=== PATIENT | male | born 1960 | race Caucasian/White ===

== ENCOUNTER 2017-04-13 06:49 | Outpatient (CLI) | payer OTHER ==
[~2017-04-13] VITALS: Ht 188 cm; Wt 108.2 kg
--- NOTE | ~2017-04-13 | HEMODYNAMI ---
PATIENT:ADOLFO MADRID MEDICAL RECORD: [id number] : 62 LOCATION:[facility] ADMISSION DATE: 04/13/17 Generatedon:04/13/20179:20 Patient name: ADOLFO MADRID Patient #: [id number] SSN: : Date of study: 04/13/2017 Page: Of Hemodynamic Procedure Report Patient Data Patient Demographics Procedure consent was obtained First Name: ADOLFO Gender: Male Last Name: JULIUS : 1960 [facility] Initial: KINA Age: 56 year(s) Patient #: [id number] Race: Unknown Additional ID: [id number] Contact details [address]: [address] [place], [place] [address] State: [place] City: [place] Zip code: [address] Past Medical History Allergies: No known allergies Admission Admission Data Admission Date: 04/13/2017 Admission Time: 6:49 Procedure Procedure Types Cath Procedure Diagnostic Procedure LHC LHC w/Coronaries Miscellaneous Procedures Moderate Sedation up to 15 minutes Procedure Description Procedure Date Procedure Date: 04/13/2017 Procedure Start Time: 9:01 Procedure End Time: 9:16 Procedure Staff Name Function Lonnie White MD Performing Physician Amina Morton RN Nurse Faye Omer RT Monitor Tejas Bradford RT Scrub Procedure Data Cath Procedure Fluoroscopy Diagnostic fluoroscopy Total fluoroscopy Time: 3.9 time: 3.9 min min Diagnostic fluoroscopy Total fluoroscopy dose: 845 dose: 845 mGy mGy Contrast Material Contrast Material Type Amount (ml) Isovue 300 79 Entry Location Entry Primary Successful Side Size Upsize Upsize Entry Closure [place] ccessful Closure Location (Fr) 1 (Fr) 2 (Fr) Remarks Device Remarks Radial Right 6 Fr Mechanical TR Band artery Short Compression Estimated blood loss: 10 ml Diagnostic catheters Device Type Used For End Catheter Placement Terumo 5Fr [place] 110cm Procedure catheter Diagnostic Infinity 5Fr Procedure AR MOD Catheter Diagnostic Terumo 5Fr Procedure [place] 110cm catheter Procedure Complications No complications Procedure Medications Medication Administration Route Dosage Oxygen NC 2 l/min Lidocaine 2% added to field 20 Heparin Flush Bag added to field 2 bags (1000units/500ml NS) 0.9% NaCl I.V. 100 ml/hr Versed I.V. 1 mg Fentanyl I.V. 50 mcg Radial Cocktail I.A. 1 syringe (Verapomil 2mg/Nitro 400mcg/Heparin 1500units) Versed I.V. 1 mg Fentanyl I.V. 50 mcg Fentanyl I.V. 25 mcg Hemodynamics Rest Heart Rate: 79 (bpm) Pressure Samples Time Site Value (mmHg) Purpose Heart Use Rate(bpm) 9:03 LV 101/-11,4 Snapshot 89 Gradients Valve Time Site Site Mean SEP/DFP Peak To Heart Use 1 2 (mmHg) (sec/min) Peak Rate (mmHg) (bpm) Aortic 9:04 LV AO 32 Snapshots Pre Cath Intra NCS Post Cath Vital Signs Time Heart Resp SPO2 NIBP Rhythm Pain Sedation Rate (ipm) (%) (mmHg) Status Level (bpm) 8:45:26 79 14 97 130/82(98) NSR 0 (11) 10(A) , No pain 8:49:36 80 16 98 118/81(95) NSR 0 (11) 10(A) , No pain 8:53:46 82 17 97 109/73(87) NSR 0 (11) 10(A) , No pain 8:57:52 81 16 97 117/73(94) NSR 0 (11) 10(A) , No pain 9:01:58 80 15 98 118/70(84) NSR 0 (11) 9(A) , No pain 9:06:02 88 15 95 106/65(80) NSR 0 (11) 9(A) , No pain 9:10:09 84 16 96 102/65(84) NSR 0 (11) 9(A) , No pain 9:14:15 82 16 96 99/64(77) NSR 0 (11) 10(A) , No pain 9:17:42 81 16 96 109/68(83) NSR 0 (11) 10(A) , No pain Medications Time Medication Route Dose Verified Delivered Reason Notes E ffectiveness by by 8:39:01 Oxygen NC 2 l/min Lonnie Buffie used for Christopher Morton pantograph transferrer 8:39:10 Lidocaine 2% added 20ml Lonnie Lonnie for local to vial Christopher White MD anesthetic field 8:39:16 Heparin Flush added 2 bags Lonnie Lonnie used for Bag to Christopher White MD procedure (1000units/500ml field NS) 8:39:29 0.9% NaCl I.V. 100 Lonnie Buffie Per ml/hr Christopher Morton RN physician 8:58:18 Versed I.V. 1 mg Lonnie Buffie for sedation Christopher Morton RN 8:58:23 Fentanyl I.V. 50 mcg Lonnie Buffie for sedation Christopher Morton RN 9:02:32 Radial Cocktail I.A. 1 Lonnie Lonnie for (Verapomil syringe Christopher White MD vasodilation 2mg/Nitro 400mcg/Heparin 1500units) 9:02:39 Versed I.V. 1 mg Lonnie Buffie for sedation Christopher Morton RN 9:02:43 Fentanyl I.V. 50 mcg Lonnie Buffie for sedation Christopher Morton RN 9:08:01 Fentanyl I.V. 25 mcg Lonnie Buffie for sedation Christopher Morton RN Procedure Log Time Note 8:15:12 Tejas Bradford RT(R) sent for patient. Start room use. 8:21:13 Time tracking: Regular hours 8:21:16 Plan of Care:Hemodynamics will remain stable., Cardiac rhythm will remain stable., Comfort level will be maintained., Respiratory function will remain adequate., Patient/ family verbilizes understanding of procedure., Procedure tolerated without complication., Recovers from procedure without complications.. 8:32:36 Patient received from Pre/Post Procedure Room to CCL 1 Alert and oriented. Tansferred to table in Supine position. 8:32:38 Correct patient and procedure confirmed by team. 8:32:38 Warm blankets applied, and sathya hugger turned on for patient comfort. 8:32:42 Signed procedure consent form obtained from patient. 8:32:43 ECG and BP/O2 sat monitors applied to patient. 8:39:01 Oxygen 2 l/min NC was administered by Amina Morton RN; used for procedure; 8:39:10 Lidocaine 2% 20ml vial added to field was administered by Lonnie White MD; for local anesthetic; 8:39:16 Heparin Flush Bag (1000units/500ml NS) 2 bags added to field was administered by Lonnie White MD; used for procedure; 8:39:29 0.9% NaCl 100 ml/hr I.V. was administered by Amina Morton RN; Per physician; 8:44:26 Plan of Care:Hemodynamics will remain stable., Cardiac rhythm will remain stable., Comfort level will be maintained., Respiratory function will remain adequate., Patient/ family verbilizes understanding of procedure., Procedure tolerated without complication., Recovers from procedure without complications.. 8:44:29 Vital chart was started 8:44:30 Baseline sample Acquired. 8:44:32 Full Disclosure recording started 8:44:53 H&P Date Dictated: 04/11/2017 Within 30 days and on chart., H&P Addendum completed by physician on day of procedure. (MUST COMPLETE FOR ALL OUTPATIENTS). 8:44:54 Pre-procedure instructions explained to patient. 8:44:55 Pre-op teaching completed and patient verbalized understanding. 8:45:06 Family in waiting room. 8:45:09 Patient NPO since Midnight. 8:45:57 Patient allergic to No known allergies 8:46:05 Is patient on blood thinner?No 8:46:10 Patient diabetic? No. 8:46:14 Snore? Yes 8:46:17 Sleep apnea? No 8:46:22 Dentures? No ? 8:46:31 IV patent on arrival in left forearm with 0.9% NaCl at [facility]. 8:46:40 Lab results completed and on chart. 8:46:43 Right Radial & Right Groin area was prepped with chlora-prep and draped in sterile fashion 8:46:45 Alarms reviewed by R. N. 8:46:46 Sharps counted by scrub and verified by R.N. 8:46:46 Physician paged 8:46:48 Physician arrived 8:57:34 --------ALL STOP TIME OUT------ 8:57:35 Final Timeout: patient, procedure, and site verified with staff and physician. All members of the team are in agreement. 8:57:46 Right Radial & Right Groin site verified by team. 8:57:51 Sedation plan: IV Moderate Sedation Versed, Fentanyl 8:58:18 Versed 1 mg I.V. was administered by Buffie Morton RN; for sedation; 8:58:23 Fentanyl 50 mcg I.V. was administered by Amina Morton RN; for sedation; 8:59:58 Use device set Radial Dx 8:59:59 Acist Syringe opened to sterile field. 9:00:00 Medline Cath Pack opened to sterile field. 9:00:00 Bag Decanter opened to sterile field. 9:00:00 Terumo 6Fr Slender Glidesheath opened to sterile field. 9:00:01 St Jose 260cm J .035 wire opened to sterile field. 9:00:01 Acist Hand Control opened to sterile field. 9:00:02 Acist Manifold opened to sterile field. 9:00:02 Tegaderm 4 x 4 opened to sterile field. 9:00:03 MBrace Wrist Support opened to sterile field. 9:01:00 Procedure started. 9:01:07 Local anesthetic to right radial artery with Lidocaine 2% by Lonnie White MD.INITIAL ACCESS ONLY 9:01:35 A 6 Fr Short sheath was inserted into the Right Radial artery 9:02:16 A Terumo 5Fr [place] 110cm catheter was advanced over the wire and used for Procedure. 9:02:32 Radial Cocktail (Verapomil 2mg/Nitro 400mcg/Heparin 1500units) 1 syringe I.A. was administered by Lonnie White MD; for vasodilation; 9:02:39 Versed 1 mg I.V. was administered by Amina Morton RN; for sedation; 9:02:43 Fentanyl 50 mcg I.V. was administered by Amina Morton RN; for sedation; 9:02:57 Zero performed for pressure channel P1 9:03:13 Zero performed for pressure channel P1 9:04:02 EF : 60 % 9:06:04 Catheter removed. 9:07:10 A Diagnostic Infinity 5Fr AR MOD Catheter was advanced over the wire and used for Procedure. 9:07:37 RCA angiography performed. 9:08:01 Fentanyl 25 mcg I.V. was administered by Amina Morton RN; for sedation; 9:09:14 Catheter removed. 9:09:49 A Diagnostic Terumo 5Fr [place] 110cm catheter was advanced over the wire and used for Procedure. 9:10:13 LCA angiography performed. 9:12:56 Catheter removed. 9:13:02 Terumo TR Band Standard opened to sterile field. 9:13:50 Sheath removed intact; hemostasis achieved with Mechanical Compression to the Right Radial artery. 9:13:55 Procedure ended.(Physican Out) 9:14:09 Fluoroscopy time 03.90 minutes. 9:14:14 Fluoroscopy dose: 845 mGy 9:14:14 Flurop Dose total: 845 9:14:20 Contrast amount:Isovue 300 79ml. 9:14:21 Sharps counted by scrub and verified by R.N. 9:14:42 TR band inflated with 12cc of air. 9:14:43 Insertion/operative site no bleeding no hematoma. 9:15:02 Post Procedure Pulses reassessed and unchanged 9:15:07 Post-procedure physical assessment completed. ASA score P 2 - A patient with mild systemic disease as per Lonnie White MD. 9:15:11 Post procedure rhythm: unchanged. 9:15:15 Estimated blood loss: 10 ml 9:15:17 Post procedure instruction explained to patient.Patient verbalizes understanding. 9:15:29 Procedure and supply charges have been captured, reviewed, submitted and are correct. 9:15:53 Procedure Complication : No complications 9:15:56 Vital chart was stopped 9:15:57 See physician's report for complete and final results. 9:16:16 Report given to Pre/Post Procedure Room. 9:16:20 Patient transfered to Pre/Post Procedure Room with Stretcher. 9:16:23 Procedure ended. 9:16:23 Full Disclosure recording stopped 9:16:27 End room use (Document Last) 9:16:27 End room use (Document Last) Device Usage Item Name Manufacture Quantity Catalog Hospital Part Current Minimal Lot# / Number Charge Number Stock Stock Serial# Code Acist Acist 1 80192 469697 244234 [id number] 20 Syringe Medical Systems Inc Medline Cardinal 1 [id number] 487242 43826 746516 5 Cath Pack Health Bag Microtek 1 2001S [id number] 56394 200248 5 Decanter Medical Inc. Terumo 6Fr Terumo 1 [id number] 004684 798205 618969 [address] Jose 1 768416 127696 386538 633039 30 260cm J .035 wire Acist Hand Acist 1 94392 839003 454831 947921 5 Control Medical Systems Inc Acist Acist 1 24161 404238 466936 693451 5 Manifold Medical Systems Inc Tegaderm 4 3M 1 1626W 937471 128316 161211 5 x 4 MBrace Advanced 1 140-0250-00 280836 70423 506298 5 Wrist Vascular Support Dynamics Terumo 5Fr Terumo 1 40-2743 763721 302737 910834 5 Ayo 110cm catheter Diagnostic Cardinal 1 [id number] 544728 439523 091098 15 Infinity Health 5Fr AR MOD Catheter Diagnostic Terumo 1 40-2908 557816 141217 675081 5 Terumo 5Fr [place] 110cm catheter Terumo TR Terumo 1 [id number] 628118 860688 654558 40 Band Standard Signature Audit [place] Stage Time Signature Unsigned Intra-Procedure 04/13/2017 Faye Omer 9:20:02 AM RT(R) Signatures Monitor : Faye Omer Signature : RT Date : Time : [place] [id number] CARLOS AMES DO[place], [place] [address]
[2017-04-13] MEDS ORDERED: GLUCOPHAGE1000 MG PO (06:52)
[2017-04-13] MEDS ORDERED: INVOKANA300 MG PO (06:52)
[2017-04-13] MEDS ORDERED: GLIMEPIRIDE4 MG PO (06:52)
[2017-04-13] MEDS ORDERED: BENICAR HCT 40-1 TA1 PO (06:53)
[2017-04-13] MEDS ORDERED: MOBIC7.5 MG PO (06:53)
[2017-04-13] MEDS ORDERED: ZOCOR40 MG PO (06:53)
[2017-04-13] MEDS ORDERED: HUMALOG 30100 UNITS/ SC (06:55)
[2017-04-13] MEDS ORDERED: LANTUS INSULIN10 ML SC (06:55)
[2017-04-13 07:07] VITALS: BP 131/80; Ht 188 cm; Wt 108.2 kg
[2017-04-13 07:22] LABS: BASOPHILS 0.3 % (0-2); HEMATOCRIT 41.5 % (42.0-54.0); IMMATURE GRANULOCYTES 0.5 % (0-5); LYMPHOCYTES 21.3 % (15-50); MCH 31.6 pg (26.0-34.0); MCHC 36.1 g/dL (31.0-37.0); MCV 87.4 fL (80.0-100.0); MEAN PLATELET VOLUME 10.4 fL (7.4-10.4); NEUTROPHILS 64.9 % (40-80); PLATELET COUNT 164 10x3/uL (130-400); RBC 4.75 10x6/uL (4.20-6.10); RDW 12.7 % (11.5-14.5); WBC 6.1 10x3/uL (4.8-10.8)
[2017-04-13 08:00] LABS: CALC OSMOLALITY 281 mosm/kg (275-300); CALCIUM 9.1 mg/dL (8.5-10.1); CARBON DIOXIDE 27.7 mmol/L (21.0-32.0); CHLORIDE - SERUM 99 mmol/L (98-107); CREATININE - SERUM 0.9 mg/dL (0.6-1.3); GLUCOSE 261 mg/dL (74-106); SODIUM 135 mmol/L (136-145); UREA NITROGEN 21 mg/dL (7-18); eGFR NON AFRICAN AMERICAN > 90 mL/min (90-120)
--- NOTE | 2017-04-13 10:13 | NUR ---
1000 PT DENIES ANY C/O. RR EVEN AND UNLABORED. NSR, RATE 72. DENIES ANY C/O CHEST DISCOMFORT OR NAUSEA. TR BAND TO RIGHT WRIST IS CDI, NO BLEEDING OR HEMATOMA NOTED. FINGERS WARM, CAP REFILL IS BRISK, FAMILY AT BEDSIDE.
--- NOTE | 2017-04-13 10:32 | NUR ---
1030 PT DENIES ANY C/O. TR BAND DEFLATION BEGUN, 3 CC OF AIR REMOVED WITH NO BLEEDING OR HEMATOMA NOTED. VSS, WILL CONTINUE TO MONITOR. FERN ICE CHIPS WITH NO NAUSEA.
--- NOTE | 2017-04-13 11:00 | NUR ---
1100 PT DENIES ANY C/O, FERN SANDWICH AND PO FLUIDS WITH NO NAUSEA. TR BAND DEFLATION UNDERWAY WITH NO BLEEDING OR HEMATOMA NOTED. VSS, FAMILY AT BEDSIDE.
--- NOTE | 2017-04-13 12:00 | NUR ---
1130 TR BAND REMOVED AND 2X2, TEGDERM APPLIED AT SITE. NO BLEEDING OR HEMATOMA NOTED. PT DENIES ANY C/O. VSS. 1200 IV DC'D WITH CATH INTACT, REVIEWED DC INSTRUCTIONS AND PT AND VERBALIZE UNDERSTANDING. NO BLEEDING OR HEMATOMA AT CATH ENTRY SITE, DRESSING REMAINS CDI, WRIST IMMOBILIZER IN PLACE. ASSISTED PT TO THE BATHROOM AND PT VOIDED QS.
--- NOTE | 2017-04-13 13:25 | NUR ---
1210 PT ESCORTED TO PRIVATE AUTO VIA WC BY NURSE WITH DRIVING HIM HOME.
== END 2017-04-13 12:10 | disposition home or self-care (01) ==
LOC: D.CATH 06:49
PROVIDERS: Internal Medicine Cardiovascular Disease
DX: I25.10 Atherosclerotic heart disease of native coronary artery without angina pectoris (principal); Z95.5 Presence of coronary angioplasty implant and graft; R94.39 Abnormal result of other cardiovascular function study; I25.2 Old myocardial infarction; E11.9 Type 2 diabetes mellitus without complications; I10 Essential (primary) hypertension; E78.5 Hyperlipidemia, unspecified; Z79.4 Long term (current) use of insulin; Z79.84 Long term (current) use of oral hypoglycemic drugs; Z79.1 Long term (current) use of non-steroidal anti-inflammatories (NSAID); Z79.899 Other long term (current) drug therapy; F17.200 Nicotine dependence, unspecified, uncomplicated; Z01.812 Encounter for preprocedural laboratory examination

== ENCOUNTER → 2017-05-26 12:22 | Outpatient (CLI) | payer MEDICARE ==
[2017-04-13 07:07] VITALS: BMI 30.6
[~2017-05-26 12:22] MED LIST: ASPIRIN81 MG PO; BENICAR HCT 40-1 TA1 PO; GLIMEPIRIDE4 MG PO; GLUCOPHAGE1000 MG PO; HEMOCYTE PLUS C1 CAP PO; HUMALOG 30100 UNITS/ SC; HYDROCODONE-APA1 TAB PO; INVOKANA300 MG PO; JARDIANCE25 MG PO; LANTUS INSULIN10 ML SC; LOPRESSOR25 MG PO; MOBIC7.5 MG PO; ZOCOR40 MG PO
[2017-05-27 08:16] LABS: HEPATITIS C ANTIBODY <0.1 (0.0-0.9)
== END | disposition home or self-care (01) ==
LOC: D.US 12:22 → D.LAB 05-29 13:00 → D.US 05-29 13:30
PROVIDERS: Internal Medicine Cardiovascular Disease
DX: Z01.812 Encounter for preprocedural laboratory examination (principal); I65.23 Occlusion and stenosis of bilateral carotid arteries

== ENCOUNTER 2017-06-12 05:11 | Inpatient (IN) | payer MEDICARE ==
--- NOTE | 2017-06-06 11:37 | HP ---
PATIENT: ADOLFO MADRID MEDICAL RECORD: [id number] ACCOUNT: [id number] LOCATION:[facility] : 62 ADMISSION DATE: 06/12/17 HISTORY AND PHYSICAL EXAMINATION NameADOLFO MADRID (57yo, M) ID# [id number]. Date/Time05/19/2017 02:21TXSPF25 1961ervice Dept.NPP_[facility] ClinicProviderEDROB JACKSON MDInsuranceMed Primary: TERLINGUA [employer] Insurance # : [id number] Policy/Group # : [id number] Referring Provider Name : GERMAIN WEEKS Employer Name : UNKNOWN Prescription: ORX - Member is eligible. Chief Complaint Coronary artery disease evaluate for CABG Patient's Care Team Referring Provider (): [facility]MAIN WEEKS[facility] [address] [place] [phone], , Western Philosophy Professor: MANJU SINHA: [address] [place] [address], , Patient's Pharmacies [facility] ([facility]): [address] [place] [address], , Vitals BP:140/70 sitting R arm 05/19/2017 02:45 pm 134/68 sitting L arm 05/19/2017 02:46 pmBP Cuff Size:adult 05/19/2017 02:45 pm adult 05/19/2017 02:46 pmHR:88,reg 05/19/2017 02:47 pmHt:6 ft 2 in 05/19/2017 02:48 pmWt:248 lbs 05/19/2017 02:48 pmNotes:describes chest pressure that doesn't seem to correllate with activity or rest, just comes and goes at different times. No nausea, no SOB.05/19/2017 02:47 pmBMI:31.8 05/19/2017 02:48 pmAllergies Reviewed Allergies NKDAMedications Reviewed Medications BC Arthritis 1,000 mg-65 mg oral powder packet Take by oral route. Internal Note: states takes about every day05/19/17 enteredSandie WilsonDemerol Internal Note: prn 1-2 times a week for arthritic pain in ozalbn29/18/17 Jose Brownglimepiride 4 mg vsnqty83/05/17 filledPRESCRIPTION SOLUTIONSHumaLOG KwikPen 100 unit/mL diwhagvorgrc12/09/17 filledPRESCRIPTION SOLUTIONSInvokana 300 mg /05/17 filledPRESCRIPTION SOLUTIONSLantus 100 unit/mL subcutaneous dzjazwkt92/07/17 filledPRESCRIPTION SOLUTIONSmeloxicam 15 mg lkxybr64/19/17 filledPRESCRIPTION SOLUTIONSmetFORMIN 1,000 mg wnhbci69/05/17 filledPRESCRIPTION SOLUTIONSolmesartan 40 mg-hydrochlorothiazide 25 mg tablet TK 1 T PO D003/10/17 filledsurescriptssimvastatin 40 mg /05/17 filledPRESCRIPTION SOLUTIONSProblems Reviewed Problems Atherosclerosis of coronary artery without angina pectoris - Onset: 05/19/2017 Coronary atherosclerosis - Onset: 05/15/2017 Family History Discussed Family History Unspecified Relation- Heart diseaseSocial History Discussed Social History HISTORY AND PHYSICAL [id number] ADOLFO MADRID Cardiology Family history of heart disease?: Y Smoking Status: Former smoker High Cholesterol: Y High blood pressure: Y Diabetes: Y Is blood transfusion acceptable in an emergency?: Y Surgical History Reviewed Surgical History Past Medical History Discussed Past Medical History Angioplasty (balloon): Y Coronary Artery Disease: Y Diabetes: Y Heart Disease: Y Heart stents: Y High Blood Pressure: Y Hyperlipidemia: Y Documents for Discussion N/A Screening None recorded. HPI Angina/Chest Pain Reported by patient. Location: chest; substernal Quality: pressure; tightness Severity: not limiting Duration: lasts minutes Onset/Timing: multiple times per day Context: exertional; at rest coronary artery disease with exertional angina ROS Patient reports exercise intolerance but reports no fever, no night sweats, no significant weight gain, and no significant weight loss. He reports chest pain on exertion and arm pain on exertion but reports no shortness of breath when walking, no shortness of breath when lying down, no palpitations, and no known heart murmur. He reports arthralgias/joint pain but reports no muscle aches, no muscle weakness, no back pain, and no swelling in the extremities. He reports no dry eyes, no irritation, and no vision change. He reports no difficulty hearing and no ear pain. He reports no frequent nosebleeds and no nose/sinus problems. He reports no sore throat, no bleeding gums, no snoring, no dry mouth, no mouth ulcers, no oral abnormalities, and no rodger t h problems. He reports no jugular vein distension and no swollen glands. He reports no cough, no wheezing, no shortness of breath, and no coughing up blood. He reports no abdominal pain, no vomiting, normal appetite, no diarrhea, not vomiting blood, no na u sea, and no constipation. He reports no incontinence, no difficulty urinating, no hematuria, and no increased frequency. He reports no abnormal mole, no jaundice, and no rashes. He reports no loss of consciousness, no weakness, no numbness, no seizures, n o dizziness, and no headaches. He reports no depression, no sleep disturbances, feeling safe in relationship, and no alcohol abuse. He reports no fatigue. He reports no swollen glands and no bruising. He reports no runny nose, no sinus pressure, no itching , no hives, and no frequent sneezing. ROS as noted in the HPI HISTORY AND PHYSICAL [id number] ADOLFO MADRID Physical Exam Patient is a 57-year-old male. Constitutional: General Appearance healthy-appearing, well developed, and overweight. Level of Distress NAD. Ambulation ambulating normally. Cardiovascular: Apical Impulse not displaced or no thrill. Heart Auscultation normal s1 and s2; no murmurs, rubs, or gallops; and RRR. Arterial Pulses no abdominal aorta bruits, femoral bruits, or popliteal bruits and 2+ bilateral, carotid 2+ bilateral, fe moral 2+ bilateral, popliteal 2+ bilateral, and dorsalis pedis 2+ bilateral. Edema no edema or varicosities. Lungs: Repiratory Effort no dyspnea. Percussion no hyperresonance or dullness or flatness. Auscultation no wheezing, rhonchi, or rales / crackles and breathing sounds normal, good air movement, and CTA except as noted. Abdomen: Bowl Sounds normal. Inspection and Palpation no tenderness, guarding, masses, or rebound tenderness and soft and non-distended. Liver non-tender and no hepatomegaly. Spleen non-tender and no splenomegaly. Hernia none palpable. Musculoskeletal System: Gait And Stance normal gait and stance. Digits and Nails normal nails and no cyanosis. Neurologic: Cranial Nerves grossly intact. Reflexes DTRs 2+ bilaterally throughout. Sensation grossly intact. Lymph Nodes: Lymph Nodes no cervical LAD, supraclavicular LAD, axillary LAD, or inguinal LAD. Eyes: Lids and Conjunctivae no discharge or pallor and non-injected. Pupils PERRLA. Cornea grossly intact. EOM EOMI. Lens clear. Sclerae non-icteric. Neck: Neck no masses, enlarged lymph nodes, or carotid bruits and supple and trachea midline. Thyroid no enlargement or nodules and non-tender. Skin: Inspection and Palpation no rash, lesions, ulcers, jaundice, or abnormal nevi. Assessment / Plan occlusive coronary artery disease 1. Coronary atherosclerosis I25.118: Atherosclerotic heart disease of [place] coronary artery with other forms of angina pectoris Discussion Notes I have discussed the patient's disease process with dashawn hahn and his in detail as well as the alternative methods of treatment. We discussed coronary artery bypass including the expected benefits and risks which include bleeding, infection, stroke, , and the imponderables. he and his understand al l of the above and he wishes to proceed with planned operation. , schedule CABG with patient HISTORY AND PHYSICAL [id number] ADOLFO MADRID EDWARD MD at 1137 CC: [id number] DICTATION DATE: 05/19/17 1415 SENIOR CLINICAL STUDY MANAGER: RENE 05/31/17 1436 PRE IN [place] [id number] [place] [id number]
[2017-06-09 09:28] LABS: APPEARANCE CLEAR (CLEAR); BASOPHILS 0.2 % (0-2); BILIRUBIN NEGATIVE (NEGATIVE); COLOR YELLOW (YELLOW); GLUCOSE 1000 mg/dL (NEGATIVE); HEMATOCRIT 41.1 % (42.0-54.0); HEMOGLOBIN 14.6 g/dL (13.5-17.5); IMMATURE GRANULOCYTES 0.2 % (0-5); KETONE NEGATIVE (NEGATIVE); LYMPHOCYTES 30.4 % (15-50); MCH 31.5 pg (26.0-34.0); MCHC 35.5 g/dL (31.0-37.0); MCV 88.6 fL (80.0-100.0); MEAN PLATELET VOLUME 10.3 fL (7.4-10.4); MONOCYTES 9.2 % (2-11); NITRITE NEGATIVE (NEGATIVE); PLATELET COUNT 164 10x3/uL (130-400); PROTEIN NEGATIVE (NEGATIVE); RBC 4.64 10x6/uL (4.20-6.10); UROBILINOGEN NORMAL (NORMAL); WBC 4.4 10x3/uL (4.8-10.8)
[2017-06-09 09:37] LABS: APTT 24.9 SECONDS (22.8-39.4); INR 0.94 (0.85-1.17); PROTIME 12.4 SECONDS (11.6-15.0)
[2017-06-09 09:57] LABS: ALKALINE PHOSPHATASE 97 U/L (46-116); ALT (SGPT) 30 U/L (10-68); BILIRUBIN - TOTAL 0.46 mg/dL (0.2-1.3); CALC OSMOLALITY 277 mosm/kg (275-300); CALCIUM 9.2 mg/dL (8.5-10.1); CARBON DIOXIDE 26.9 mmol/L (21.0-32.0); CHLORIDE - SERUM 98 mmol/L (98-107); CHOLESTEROL, TOTAL 157 mg/dL (0-200); PHOSPHOROUS 3.4 mg/dL (2.5-4.9); POTASSIUM - SERUM 4.1 mmol/L (3.5-5.1); PROTEIN - SERUM 7.8 g/dL (6.4-8.2); SODIUM 136 mmol/L (136-145); T4 THYROXIN - FREE 1.02 ng/dL (0.76-1.46); THYROID STIMULATING HORMONE 0.68 uIU/mL (0.36-3.74); UREA NITROGEN 19 mg/dL (7-18); eGFR NON AFRICAN AMERICAN 82 mL/min (90-120)
[2017-06-09 10:06] LABS: GLUCOSE 171 mg/dL (74-106)
[2017-06-09 10:14] LABS: HEMOGLOBIN A1C 10.8 % (4.8-6.0)
[2017-06-09 11:43] LABS: COLD SCREEN ROOM TEMP NEGATIVE (NEGATIVE)
[2017-06-09 11:44] LABS: COLD SCREEN @ 4 DEGREES 1+ (NEGATIVE)
[2017-06-12] VITALS (39 sets, daily range): BP systolic 100–139; BP diastolic 51–78; BMI 31.9; BMI 31.6
[~2017-06-12 05:11] MED LIST changes: -ASPIRIN81 MG PO; -HEMOCYTE PLUS C1 CAP PO; -HYDROCODONE-APA1 TAB PO; -JARDIANCE25 MG PO; -LOPRESSOR25 MG PO
[2017-06-12 08:25] LABS: PLT FUNCT.(P2Y12) PLAVIX 263 PRU (194-418)
[2017-06-12 14:26] LABS: HEMATOCRIT 29.8 % (42.0-54.0); HEMOGLOBIN 10.8 g/dL (13.5-17.5); MCH 31.9 pg (26.0-34.0); MCHC 36.2 g/dL (31.0-37.0); MCV 87.9 fL (80.0-100.0); MEAN PLATELET VOLUME 10.1 fL (7.4-10.4); RBC 3.39 10x6/uL (4.20-6.10); RDW 12.9 % (11.5-14.5); WBC 9.3 10x3/uL (4.8-10.8)
[2017-06-12 14:35] LABS: CALC OSMOLALITY 295 mosm/kg (275-300); CALCIUM 7.8 mg/dL (8.5-10.1); CARBON DIOXIDE 26.9 mmol/L (21.0-32.0); CHLORIDE - SERUM 110 mmol/L (98-107); CREATININE - SERUM 0.7 mg/dL (0.6-1.3); GLUCOSE 148 mg/dL (74-106); SODIUM 147 mmol/L (136-145); UREA NITROGEN 16 mg/dL (7-18); eGFR NON AFRICAN AMERICAN > 90 mL/min (90-120)
[2017-06-12 14:36] LABS: APTT 32.7 SECONDS (22.8-39.4); INR 1.26 (0.85-1.17); PROTIME 15.7 SECONDS (11.6-15.0)
[2017-06-13] VITALS (91 sets, daily range): BP systolic 96–136; BP diastolic 42–65
[2017-06-13 06:17] LABS: HEMATOCRIT 29.1 % (42.0-54.0); HEMOGLOBIN 10.3 g/dL (13.5-17.5); MCH 31.4 pg (26.0-34.0); MCHC 35.4 g/dL (31.0-37.0); MCV 88.7 fL (80.0-100.0); MEAN PLATELET VOLUME 9.8 fL (7.4-10.4); RBC 3.28 10x6/uL (4.20-6.10); RDW 13.5 % (11.5-14.5); WBC 8.5 10x3/uL (4.8-10.8)
[2017-06-13 06:43] LABS: ALBUMIN 3.6 g/dL (3.4-5.0); ALKALINE PHOSPHATASE 28 U/L (46-116); ALT (SGPT) 23 U/L (10-68); BILIRUBIN - TOTAL 0.74 mg/dL (0.2-1.3); CALC OSMOLALITY 291 mosm/kg (275-300); CALCIUM 8.4 mg/dL (8.5-10.1); CARBON DIOXIDE 24.8 mmol/L (21.0-32.0); CHLORIDE - SERUM 110 mmol/L (98-107); CREATININE - SERUM 0.7 mg/dL (0.6-1.3); GLUCOSE 126 mg/dL (74-106); PROTEIN - SERUM 6.1 g/dL (6.4-8.2); SODIUM 145 mmol/L (136-145); UREA NITROGEN 15 mg/dL (7-18); eGFR NON AFRICAN AMERICAN > 90 mL/min (90-120)
[2017-06-14] VITALS (45 sets, daily range): BP systolic 98–143; BP diastolic 50–86
[2017-06-14 06:14] LABS: HEMATOCRIT 26.9 % (42.0-54.0); HEMOGLOBIN 9.2 g/dL (13.5-17.5); MCHC 34.2 g/dL (31.0-37.0); MCV 90.6 fL (80.0-100.0); MEAN PLATELET VOLUME 10.3 fL (7.4-10.4); RBC 2.97 10x6/uL (4.20-6.10); RDW 13.9 % (11.5-14.5); WBC 6.4 10x3/uL (4.8-10.8)
[2017-06-14 06:48] LABS: ALBUMIN 3.2 g/dL (3.4-5.0); ALKALINE PHOSPHATASE 33 U/L (46-116); ALT (SGPT) 22 U/L (10-68); CALCIUM 8.1 mg/dL (8.5-10.1); CARBON DIOXIDE 24.7 mmol/L (21.0-32.0); CHLORIDE - SERUM 105 mmol/L (98-107); GLUCOSE 108 mg/dL (74-106); POTASSIUM - SERUM 3.9 mmol/L (3.5-5.1); SODIUM 139 mmol/L (136-145)
[2017-06-14 06:49] LABS: CALC OSMOLALITY 281 mosm/kg (275-300); CREATININE - SERUM 0.9 mg/dL (0.6-1.3); UREA NITROGEN 20 mg/dL (7-18); eGFR NON AFRICAN AMERICAN > 90 mL/min (90-120)
[2017-06-15] VITALS (24 sets, daily range): BP systolic 117–150; BP diastolic 60–96
[2017-06-15 07:04] LABS: ALBUMIN 3.1 g/dL (3.4-5.0); ALKALINE PHOSPHATASE 54 U/L (46-116); ALT (SGPT) 22 U/L (10-68); BILIRUBIN - TOTAL 0.56 mg/dL (0.2-1.3); CALCIUM 8.3 mg/dL (8.5-10.1); CHLORIDE - SERUM 102 mmol/L (98-107); PROTEIN - SERUM 6.5 g/dL (6.4-8.2); SODIUM 139 mmol/L (136-145); eGFR NON AFRICAN AMERICAN 82 mL/min (90-120)
[2017-06-15 07:07] LABS: CALC OSMOLALITY 293 mosm/kg (275-300); GLUCOSE 253 mg/dL (74-106); UREA NITROGEN 31 mg/dL (7-18)
[2017-06-15 07:55] LABS: HEMATOCRIT 23.4 % (42.0-54.0); HEMOGLOBIN 7.9 g/dL (13.5-17.5); MCH 30.6 pg (26.0-34.0); MCHC 33.8 g/dL (31.0-37.0); MCV 90.7 fL (80.0-100.0); MEAN PLATELET VOLUME 10.6 fL (7.4-10.4); RBC 2.58 10x6/uL (4.20-6.10); RDW 13.6 % (11.5-14.5); WBC 6.9 10x3/uL (4.8-10.8)
--- NOTE | 2017-06-15 17:40 | OP ---
PATIENT NAME: ADOLFO MADRID MEDICAL RECORD: [id number] :62 LOCATION:[facility].CV05 ADMISSION DATE:06/12/17 SURGEON: KORIN MEDINA MD DATE OF OPERATION: 06/12/2017 SURGEON: Korin Medina MD ANESTHESIA: General endotracheal, Dr. Tamayo. OPERATION PERFORMED: Coronary artery bypass utilizing left internal thoracic, left anterior descending, reverse saphenous vein graft, sequential first diagonal, sequential obtuse marginal coronary artery and sequential graft to the posterior descending and posterolateral branch of the right coronary artery. PREOPERATIVE DIAGNOSIS: Angina pectoris. POSTOPERATIVE DIAGNOSIS: Angina pectoris. INDICATION FOR OPERATION: Severe occlusive coronary artery disease with compelling anatomy. FINDINGS OF THE OPERATION: The left internal thoracic and the right greater saphenous vein were of excellent quality for grafting. The targets were also of good quality for grafting. ESTIMATED BLOOD LOSS: Cell Saver was used. DESCRIPTION OF PROCEDURE: After informed consent, adequate preoperative medication evaluation, the patient was brought to the operating room, placed on the table in the supine position. After induction of general endotracheal anesthesia and application of appropriate monitoring devices, the chest, neck, abdomen, and both legs were prepped and draped in a sterile field, utilizing Betadine scrub, alcohol, and Betadine solution. A Betadine-impregnated drape was also used. Saphenous vein was harvested from right thigh and prepared for reverse saphenous vein grafting. The leg was closed over drains utilizing 3-0 Vicryl and skin taye. Median sternotomy incision was used and dissection carried down the fascia. Hemostasis maintained with electrocautery. Sternum was divided. Innominate vein was identified and protected. Left internal thoracic was taken down and prepared for grafting. The patient was given a calculated dose of heparin, cannulated in the standard fashion utilizing 1 aortic, one two-stage cannula in the atrium and inferior vena cava. The patient was placed on cardiopulmonary bypass, cooled to 32 degrees centigrade. A cross clamp was placed just proximal to the aortic cannula and the patient was given cardioplegic solution through the aortic root. The patient was given a cool induction and cool maintenance. The patient was given cool intermittent cardioplegic solution throughout the procedure through the grafts, through the root or a combination of both. The first vessel to be grafted was the posterolateral branch of the right. It was grafted end-to-side utilizing a running 7-0 Prolene suture. The graft was then measured to the posterior descending in a [id number] anastomosis fashioned utilizing a running 7-0 Prolene suture. Grafts were measured back to the aorta and a proximal anastomosis fashioned utilizing running 6-0 Prolene suture. Next, the obtuse marginal was grafted end-to-side utilizing a running 7-0 Prolene suture. Graft was then measured to the first diagonal in a iybt-[id number]-[id number] anastomosis fashion utilizing running 7-0 Prolene suture. The graft was measured back to the aorta OPERATIVE REPORT [id number] ADOLFO MADRID and a proximal anastomosis fashioned utilizing running 6-0 Prolene suture. Next, left internal thoracic was brought through the hole in pericardium, sutured left anterior descending end-to-side utilizing a running 8-0 Prolene suture. Pedicle was attached to epicardium with a 7-0 Prolene suture. The patient was given warm cardioplegic reperfusion and controlled reperfusion. The patient rewarmed to 37 degrees centigrade. Two atrial and 2 ventricular pacing wires were placed on the heart and brought out through the epigastric area. The patient was weaned cardiopulmonary bypass. After being stable off bypass, he was given calculated dose of protamine to reverse the heparin. Hemostasis was achieved. A #40 right angle and #36 chest tubes were brought in through the epigastric area and placed in mediastinum. The left pleural tube was connected to underwater seal and suction. Chest was again irrigated. Instrument count and sponge count were correct times 2. Chest was closed in layers utilizing #7 wire on the sternum, #2 Vicryl on linea alba and pectoralis fascia. Subcutaneous tissue was approximated with 3-0 Vicryl and skin approximated with 3-0 subcuticular Vicryl. Sterile dressings were applied. The patient tolerated the procedure well and transferred to the [facility] ICU in satisfactory condition. TRANSINT:[id number] Voice Confirmation ID: [id number] DOCUMENT ID: [id number] KORIN MEDINA MD at 1740 CC: [id number] DICTATION DATE: 06/12/17 1449 NEEDLE STRAIGHTENER: 06/12/17 1548 ADM IN [facility] [address] [place] [address]
[2017-06-16] VITALS (24 sets, daily range): BP systolic 114–147; BP diastolic 60–88
[2017-06-16 07:10] LABS: HEMATOCRIT 24.2 % (42.0-54.0); HEMOGLOBIN 8.2 g/dL (13.5-17.5); MCH 30.7 pg (26.0-34.0); MCHC 33.9 g/dL (31.0-37.0); MCV 90.6 fL (80.0-100.0); MEAN PLATELET VOLUME 10.1 fL (7.4-10.4); RBC 2.67 10x6/uL (4.20-6.10); RDW 13.3 % (11.5-14.5); WBC 6.4 10x3/uL (4.8-10.8)
[2017-06-16 07:36] LABS: ALBUMIN 3.1 g/dL (3.4-5.0); ALKALINE PHOSPHATASE 96 U/L (46-116); BILIRUBIN - TOTAL 0.47 mg/dL (0.2-1.3); CALCIUM 8.4 mg/dL (8.5-10.1); CARBON DIOXIDE 27.1 mmol/L (21.0-32.0); CHLORIDE - SERUM 103 mmol/L (98-107); CREATININE - SERUM 0.9 mg/dL (0.6-1.3); POTASSIUM - SERUM 3.6 mmol/L (3.5-5.1); PROTEIN - SERUM 6.7 g/dL (6.4-8.2); SODIUM 139 mmol/L (136-145); UREA NITROGEN 26 mg/dL (7-18); eGFR NON AFRICAN AMERICAN > 90 mL/min (90-120)
[2017-06-16 07:45] LABS: ALT (SGPT) 32 U/L (10-68); CALC OSMOLALITY 285 mosm/kg (275-300); GLUCOSE 160 mg/dL (74-106)
[2017-06-17] VITALS (24 sets, daily range): BP systolic 104–138; BP diastolic 48–85
[2017-06-17 06:30] LABS: HEMATOCRIT 24.8 % (42.0-54.0); HEMOGLOBIN 8.3 g/dL (13.5-17.5); MCH 30.6 pg (26.0-34.0); MCHC 33.5 g/dL (31.0-37.0); MCV 91.5 fL (80.0-100.0); MEAN PLATELET VOLUME 10.1 fL (7.4-10.4); RBC 2.71 10x6/uL (4.20-6.10); RDW 13.4 % (11.5-14.5); WBC 4.9 10x3/uL (4.8-10.8)
[2017-06-17 06:47] LABS: ALBUMIN 2.9 g/dL (3.4-5.0); ALKALINE PHOSPHATASE 96 U/L (46-116); ALT (SGPT) 30 U/L (10-68); BILIRUBIN - TOTAL 0.51 mg/dL (0.2-1.3); CALC OSMOLALITY 288 mosm/kg (275-300); CALCIUM 8.6 mg/dL (8.5-10.1); CARBON DIOXIDE 26.1 mmol/L (21.0-32.0); CHLORIDE - SERUM 105 mmol/L (98-107); CREATININE - SERUM 0.9 mg/dL (0.6-1.3); GLUCOSE 168 mg/dL (74-106); POTASSIUM - SERUM 4.1 mmol/L (3.5-5.1); PROTEIN - SERUM 6.6 g/dL (6.4-8.2); SODIUM 142 mmol/L (136-145); UREA NITROGEN 19 mg/dL (7-18); eGFR NON AFRICAN AMERICAN > 90 mL/min (90-120)
[2017-06-18] VITALS (25 sets, daily range): BP systolic 93–141; BP diastolic 52–80
[2017-06-18 06:47] LABS: HEMATOCRIT 27.3 % (42.0-54.0); HEMOGLOBIN 9.1 g/dL (13.5-17.5); MCH 30.6 pg (26.0-34.0); MCHC 33.3 g/dL (31.0-37.0); MCV 91.9 fL (80.0-100.0); MEAN PLATELET VOLUME 9.7 fL (7.4-10.4); RBC 2.97 10x6/uL (4.20-6.10); RDW 13.5 % (11.5-14.5); WBC 5.6 10x3/uL (4.8-10.8)
[2017-06-18 07:01] LABS: ALBUMIN 2.9 g/dL (3.4-5.0); ALKALINE PHOSPHATASE 98 U/L (46-116); ALT (SGPT) 28 U/L (10-68); BILIRUBIN - TOTAL 0.54 mg/dL (0.2-1.3); CALC OSMOLALITY 282 mosm/kg (275-300); CALCIUM 8.9 mg/dL (8.5-10.1); CHLORIDE - SERUM 105 mmol/L (98-107); CREATININE - SERUM 0.9 mg/dL (0.6-1.3); GLUCOSE 123 mg/dL (74-106); POTASSIUM - SERUM 4.1 mmol/L (3.5-5.1); PROTEIN - SERUM 6.8 g/dL (6.4-8.2); SODIUM 141 mmol/L (136-145); UREA NITROGEN 15 mg/dL (7-18); eGFR NON AFRICAN AMERICAN > 90 mL/min (90-120)
[2017-06-19] VITALS (10 sets, daily range): BP systolic 94–130; BP diastolic 59–76; BMI 31.4
[2017-06-19] MEDS ORDERED: LOPRESSOR25 MG PO (08:16)
[2017-06-19] MEDS ORDERED: HEMOCYTE PLUS C1 CAP PO (08:16)
[2017-06-19] MEDS ORDERED: ASPIRIN81 MG PO (08:17)
[2017-06-19] MEDS ORDERED: HYDROCODONE-APA1 TAB PO (08:19)
[2017-06-19] MEDS ORDERED: JARDIANCE25 MG PO (10:43)
[2017-06-19] MEDS ORDERED: LANTUS INSULIN10 ML SC (10:43)
--- NOTE | 2017-06-23 16:56 | TEE ---
PATIENT:ADOLFO MADRID MEDICAL RECORD: [id number] LOCATION:[place] [address] AGE OF PATIENT: 57 ADMISSION DATE: 06/12/17 SEX: M REFERRING PHYSICIAN: INTERPRETING PHYSICIAN: AKIL HAND MD TRANSESOPHAGEAL ECHOCARDIOGRAM GILLIAN CHARGE Y INDICATIONS: CABG PREMEDICATIONS: PATIENT'S RESPONSE PROCEDURE DOPPLER MEASUREMENTS: LVIT LA PA RA LVOT RVOT Asc. 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 White [employer] Developer: Scott GARCIA COMMENTS: DATE OF SERVICE: 06/12/2017 PROCEDURE: Transesophageal echo evaluation of valvular structures during bypass surgery. FINDINGS: 1. Left ventricular chamber size is within normal limits. Left ventricular systolic function is mildly reduced. Overall ejection fraction estimated at 40%. TRANSESOPHAGEAL ECHOCARDIOGRAM REPORT [id number] ADOLFO MADRID 2. Left atrium, right atrium, and right ventricular chamber sizes are mildly dilated. 3. Valvular structures have normal structure and motion. 4. Doppler interrogation reveals trace mitral regurgitation only. No other valvular insufficiency or stenosis. 5. No evidence of pericardial effusion or left ventricular thrombus. TRANSINT:[id number] Voice Confirmation ID: [id number] DOCUMENT ID: [id number] at 1656 CC: [id number] DICTATION DATE: 06/13/17 1201 WELL CLEANER: 06/13/17 1221 DIS IN 06/19/17 [place] [id number] [place] [address]
== END 2017-06-19 14:20 | disposition home health service (06) | DRG 236 ==
LOC: D.SDCHOLD 05:11 → D.CVICU 05:11 → D.SDCHOLD 07:30 → D.CVICU 13:47
PROVIDERS: ADMIT Internal Medicine Cardiovascular Disease
PROC: 021309W Bypass Coronary Artery, Four or More Arteries from Aorta with Autologous Venous Tissue, Open Approach (ICD-10-PCS; 2017-06-12)
PROC: 06BP0ZZ Excision of Right Saphenous Vein, Open Approach (ICD-10-PCS; 2017-06-12)
PROC: 5A1221Z Performance of Cardiac Output, Continuous (ICD-10-PCS; 2017-06-12)
PROC: 02100AC Bypass Coronary Artery, One Artery from Thoracic Artery with Autologous Arterial Tissue, Open Approach (ICD-10-PCS; principal; 2017-06-12 07:30)
DX: I25.119 Atherosclerotic heart disease of native coronary artery with unspecified angina pectoris (principal); E11.9 Type 2 diabetes mellitus without complications; I10 Essential (primary) hypertension; E78.5 Hyperlipidemia, unspecified; Z95.5 Presence of coronary angioplasty implant and graft; F17.200 Nicotine dependence, unspecified, uncomplicated

== ENCOUNTER → 2017-07-06 09:06 | Outpatient (CLI) | payer MEDICARE ==
[2017-06-19 10:41] VITALS: BMI 31.4
[~2017-07-06 09:06] MED LIST changes: +ASPIRIN81 MG PO; +HEMOCYTE PLUS C1 CAP PO; +HYDROCODONE-APA1 TAB PO; +JARDIANCE25 MG PO; +LOPRESSOR25 MG PO
[2017-07-06 09:49] LABS: HEMOGLOBIN 12.2 g/dL (13.5-17.5); MCH 28.6 pg (26.0-34.0); MCHC 32.1 g/dL (31.0-37.0); MCV 89.2 fL (80.0-100.0); MEAN PLATELET VOLUME 9.4 fL (7.4-10.4); RBC 4.26 10x6/uL (4.20-6.10); RDW 14.8 % (11.5-14.5); WBC 4.9 10x3/uL (4.8-10.8)
[2017-07-06 09:59] LABS: CALC OSMOLALITY 284 mosm/kg (275-300); CALCIUM 9.3 mg/dL (8.5-10.1); CARBON DIOXIDE 27.1 mmol/L (21.0-32.0); CHLORIDE - SERUM 100 mmol/L (98-107); SODIUM 136 mmol/L (136-145); UREA NITROGEN 17 mg/dL (7-18); eGFR NON AFRICAN AMERICAN 82 mL/min (90-120)
[2017-07-06 10:02] LABS: GLUCOSE 295 mg/dL (74-106)
== END | disposition home or self-care (01) ==
LOC: D.RAD 09:06
PROVIDERS: Internal Medicine Cardiovascular Disease
DX: D64.9 Anemia, unspecified (principal); J90 Pleural effusion, not elsewhere classified

== ENCOUNTER → 2018-10-17 08:54 | Outpatient (CLI) | payer MEDICARE ==
[2017-06-19 10:41] VITALS: BMI 31.4
== END | disposition home or self-care (01) ==
LOC: D.RAD 08:54
DX: M75.120 Complete rotator cuff tear or rupture of unspecified shoulder, not specified as traumatic (principal)

== ENCOUNTER → 2018-10-19 08:58 | Outpatient (CLI) | payer MEDICARE ==
[2017-06-19 10:41] VITALS: BMI 31.4
== END | disposition home or self-care (01) ==
LOC: D.RAD 08:58
DX: M75.120 Complete rotator cuff tear or rupture of unspecified shoulder, not specified as traumatic (principal)

== ENCOUNTER 2019-03-04 10:43 | Emergency (ER) | payer MEDICARE ==
[~2019-03-04] VITALS: Ht 188 cm; Wt 106.4 kg
[2019-03-04 10:46] VITALS: Ht 188 cm; Wt 106.4 kg
[2019-03-04] MEDS ORDERED: CLEOCIN HCL300 MG PO (12:13)
[2019-03-04 12:56] VITALS: BP 136/71
== END 2019-03-04 12:42 | disposition home or self-care (01) ==
LOC: D.ER 10:43
DX: D48.7 Neoplasm of uncertain behavior of other specified sites (principal)

== ENCOUNTER → 2019-03-15 19:04 | Outpatient (CLI) | payer MEDICARE ==
[2019-03-04 10:46] VITALS: BMI 30.1
[~2019-03-15 19:04] MED LIST changes: +CLEOCIN HCL300 MG PO
== END | disposition home or self-care (01) ==
LOC: D.LABREF 19:04
PROVIDERS: ATTEND Surgery
DX: L02.214 Cutaneous abscess of groin (principal)

== ENCOUNTER → 2019-05-15 10:30 | Outpatient (CLI) | payer MEDICARE ==
[2019-03-04 10:46] VITALS: BMI 30.1
== END | disposition home or self-care (01) ==
LOC: D.HCCARDIO 10:30 → D.HCCECHO 10:30
PROVIDERS: ATTEND Internal Medicine Cardiovascular Disease
DX: I25.810 Atherosclerosis of coronary artery bypass graft(s) without angina pectoris (principal)